=== PATIENT | male | born 1945 | race Caucasian/White ===

== ENCOUNTER 2018-08-29 07:00 | Day surgery (SDC) | payer MEDICARE, OTHER ==
[~2018-08-29 07:00] MED LIST: MIDAZOLAM INJ 2 MG/2 ML VIAL ONE
[2018-08-29] MEDS ORDERED: TROP 1%/CYCLOPEN 1%/PHENYL 2% DROPS ONE (08:40)
[2018-08-29] MEDS ORDERED: PROPARACAINE 0.5% OPHTH SOL 15 ML BTTL ONE (08:40)
[2018-08-29] MEDS ORDERED: PROPARACAINE 0.5% OPHTH SOL 15 ML BTTL RIGHT_EYE ONE (09:45)
[2018-08-29] MEDS ORDERED: DEXAMETHASONE 0.1% OPHTH SOL 1 DROP RIGHT_EYE ONE ×2 (09:52→10:08)
[2018-08-29] MEDS ORDERED: TOBRAMYCIN SULF 0.3 % OPHT SOL 1 DROP RIGHT_EYE ONE ×2 (09:52→10:08)
[2018-08-29] MEDS ORDERED: LIDOCAINE 1% 2 ML VIAL INJ ONE ×2 (09:52→09:55)
[2018-08-29] MEDS ORDERED: BRIMONIDINE 0.2% OPHTH DROPS RIGHT_EYE ONE ×2 (09:53→10:08)
== END 2018-08-29 10:47 | disposition home or self-care (01) ==
LOC: AMB 07:00
PROVIDERS: ATTEND Ophthalmology
DX: H26.9 Unspecified cataract (principal); I10 Essential (primary) hypertension; E66.9 Obesity, unspecified; J44.9 Chronic obstructive pulmonary disease, unspecified; Z88.0 Allergy status to penicillin; Z88.5 Allergy status to narcotic agent; Z88.8 Allergy status to other drugs, medicaments and biological substances; Z91.048 Other nonmedicinal substance allergy status; Z79.899 Other long term (current) drug therapy
CPT/HCPCS: 00142; 66984; J2250

== ENCOUNTER 2018-09-12 05:32 | Day surgery (SDC) | payer MEDICARE, OTHER ==
[2018-09-12] MEDS ORDERED: PROPARACAINE 0.5% OPHTH SOL 15 ML BTTL ONE (06:00)
[2018-09-12] MEDS ORDERED: TROP 1%/CYCLOPEN 1%/PHENYL 2% DROPS ONE (06:00)
[2018-09-12] MEDS ORDERED: MIDAZOLAM INJ 2 MG/2 ML VIAL ONE (07:05)
[2018-09-12] MEDS ORDERED: PROPARACAINE 0.5% OPHTH SOL 15 ML BTTL LEFT_EYE ONE (08:50)
[2018-09-12] MEDS ORDERED: LIDOCAINE 1% PF 2 ML AMP INJ ONE ×2 (09:00→09:05)
[2018-09-12] MEDS ORDERED: TOBRAMYCIN SULF 0.3 % OPHT SOL 1 DROP LEFT_EYE ONE ×2 (09:00→09:20)
[2018-09-12] MEDS ORDERED: DEXAMETHASONE 0.1% OPHTH SOL 1 DROP LEFT_EYE ONE ×2 (09:00→09:20)
[2018-09-12] MEDS ORDERED: BRIMONIDINE 0.2% OPHTH DROPS LEFT_EYE ONE ×2 (09:01→09:20)
== END 2018-09-12 10:00 | disposition home or self-care (01) ==
LOC: AMB 05:32
PROVIDERS: ATTEND Ophthalmology
DX: H26.9 Unspecified cataract (principal); I10 Essential (primary) hypertension; K21.9 Gastro-esophageal reflux disease without esophagitis; I25.10 Atherosclerotic heart disease of native coronary artery without angina pectoris; Z88.0 Allergy status to penicillin; Z88.5 Allergy status to narcotic agent; Z88.8 Allergy status to other drugs, medicaments and biological substances; Z79.82 Long term (current) use of aspirin; Z79.891 Long term (current) use of opiate analgesic; Z79.899 Other long term (current) drug therapy
CPT/HCPCS: 00142; 66984; J2250

== ENCOUNTER → 2019-07-13 | Outpatient (CLI) | payer MEDICARE, OTHER ==
--- NOTE | 2019-07-13 18:39 | MRI ---
EXAM DESCRIPTION: Brain w/o Contrast: MRI. CLINICAL HISTORY: MEMORY LOSS COMPARISON: None. TECHNIQUE: Multiplanar, high-field MRI unit, multiple diffusion sequences, multiple conventional sequences without contrast. FINDINGS: Small bilateral multiple foci of hyperintense FLAIR and T2-weighted signal in the periventricular white matter and subcortical matter junctions of the cerebral hemispheres. There are also other subcortical white matter and carvalho matter lesions in the frontal lobes, more left than right. Also fewer lesions in the bilateral centrum semiovale. Similar signal in the periventricular left occipital lobe abutting the occipital horn of the ventricle. . No hemorrhage, no cerebral edema, no mass-effect. No diffusion restriction. Cyst in the anterior right basal ganglia. Focal ischemic lesion in the posterior left basal ganglia. Small lesions bilateral anterior insular cortex. Normal signal in the brainstem and cerebellar hemispheres. No hemorrhage, no parenchymal edema, no mass-effect. No diffusion restriction. Concordance of the diffusion and non-diffusion sequences with no diffusion restriction. Cortical sulci, and other CSF spaces, and the subdural spaces are more prominent in the bilateral frontal and parietal lobes. Minimal prominence of the bilateral ventricles. No effacement or displacement. No midline shift. No extra-axial hemorrhage above. Normal flow signal void in the major vessels of the [place], and the venous sinuses. Right vertebral artery is dominant with tortuous basilar artery. IACs are symmetric bilaterally. Normal signal in the bilateral mastoid air cells. Basilar artery is abutting the left cerebellopontine angle. No mass effect in the bilateral cerebellopontine angles. Pituitary gland occupies most of the sella. Base of the cerebellar tonsils is above the foramen magnum. Minimal mucoperiosteal thickening in the bilateral. The bony calvarium is intact. IMPRESSION: 1. Multiple bilateral foci of white matter abnormal signal predominantly involving the periventricular white matter of the bonner radiata. Asymmetric involvement of the fibers abutting the occipital horn of the left ventricle. Also focal lesion in the carvalho-white matter junction of the left frontal lobe. No lesions are associated with hemorrhage mass effect or diffusion restriction. 2. No intra-axial or extra-axial hemorrhage or abnormal fluid collection. Bilateral cortical and central frontal and parietal atrophy compared to the other lobes. No evidence of acute or subacute severe ischemia or infarction. Electronically signed by: Rodney Aguilar MD 07/13/2019 6:37 PM CDT
== END ==
LOC: MRI 11:00
PROVIDERS: ATTEND General Practice
DX: G31.84 Mild cognitive impairment of uncertain or unknown etiology (principal); R90.82 White matter disease, unspecified; R41.3 Other amnesia

== ENCOUNTER → 2019-11-20 | Outpatient (CLI) | payer MEDICARE, OTHER ==
--- NOTE | 2019-11-21 09:27 | CT ---
EXAM DESCRIPTION: Abdomen/Pelvis w/Contrast: Computed Tomography. CLINICAL HISTORY: 74 years Male ABD PAIN COMPARISON: None. TECHNIQUE: Spiral-axial scans at 5 x 5 mm intervals through the abdomen and pelvis, after nonionic IV contrast and water-soluble oral contrast. Coronal and sagittal 2.0 mm reconstructions. No delayed scans. No adverse reactions. Total Exam DLP: 1034.96 mGy-cm. This exam was performed according to our departmental dose-optimization program which includes automated exposure control, adjustment of the mA and/or kV according to patient size and/or use of iterative reconstruction technique; to reduce radiation dose to as low as reasonably achievable (ALARA). FINDINGS: Lung bases and pleura: Pleural parenchymal scarring versus atelectasis in the right lower lobe. Coronary artery stents/calcifications. Liver, Stomach, Spleen, Adrenal Glands: 19.9 cm long axis right lobe liver. Smooth capsule. Vascular structures appear physiologic No focal lesions in the solid organs. Possible medication posterior stomach fundus. Pancreas, Gallbladder, Ducts: Unremarkable. Kidneys and Ureters: 1 mm radiodensity abutting the upper collecting system of the right kidney may represent a small calcification or stone. No obstruction. Bilateral kidneys and ureters otherwise unremarkable. Mesentery: Negative. Aorta: Minimal atherosclerotic calcification with normal outer caliber. Small Bowel: Fluid proximal and mid small bowel with minimal distention of the distal jejunum and proximal ileum no significant air-fluid levels and no transition point. Small lymph nodes in the mesentery abutting the distended fluid filled segments. Terminal Ileum/Cecum: Normal caliber. Fecal matter and possible medication in the cecum. Normal caliber of the appendix. No inflammatory process. Colon: Hepatic flexure between the colon and the anterior right hemidiaphragm but no complications. Diverticula descending colon and sigmoid colon moderate gaseous distention of the rectum Pelvic Organs: Prostate gland with calcifications abutting the urinary bladder which is nondistended and no wall thickening. No free fluid. Spine and Bony Pelvis: Diffuse lumbar spondylosis and desiccated disc with gas formation. Grade 1 anterolisthesis L4-L5 and grade 1 retrolisthesis L3-L4. Minimal spondylosis in the thoracic spine with anterior ankylosis. Thoracolumbar scoliosis. Minimal arthrosis in the hip joints and SI joints. Abdominal Wall/Back Soft Tissues: Small inguinal lymph nodes. IMPRESSION: 1. Hepatomegaly without focal nonenhancing or enhancing lesion. Smooth capsule with no ascites. Physiologic appearance of the vascular structures. 2. Distal colonic diverticulitis with no complications. Interposition of the hepatic flexure of the colon between the liver and right hemidiaphragm without hernia or other complication. 3. Increased fluid and minimal distention of the distal jejunum proximal ileum may represent an enteritis. Small lymph nodes in the adjacent mesentery are also seen. 4. Nonobstructing 1 mm stone or calcification left kidney. 5. Thoracic and lumbar spondylosis more severe in the lumbar spine with spondylolisthesis also seen. Also anterior ankylosis of the thoracic spine. Electronically signed by: Rodney Aguilar MD 11/21/2019 9:25 AM [facility]
== END ==
LOC: CT 15:09
PROVIDERS: ATTEND General Practice
DX: R16.0 Hepatomegaly, not elsewhere classified (principal); K57.30 Diverticulosis of large intestine without perforation or abscess without bleeding; N20.0 Calculus of kidney; K63.9 Disease of intestine, unspecified; M47.894 Other spondylosis, thoracic region; M45.4 Ankylosing spondylitis of thoracic region; M47.896 Other spondylosis, lumbar region; M43.16 Spondylolisthesis, lumbar region